=== PATIENT | male | born 1970 | race African-American/Black ===

== ENCOUNTER 2021-02-13 13:32 | Inpatient (IN) | payer OTHER ==
[~2021-02-13] VITALS: Ht 172.7 cm; Wt 94.3 kg
[2021-02-13] MEDS ORDERED: SODIUM CHLORIDE 0.9% 1,000 ML IV ONE (14:00)
[2021-02-13 14:27] LABS: BASOPHILS % 0.4 % (0.0-2.0); EOSINOPHILS % 0.3 % (0.0-5.0); HEMATOCRIT. 49.4 % (42.0-52.0); HEMOGLOBIN. 16.5 g/dL (14.0-18.0); LYMPHOCYTES % 10.1 % (20.0-50.0); MEAN CORPUSCULAR VOLUME 80.9 fL (80.0-94.0); MEAN PLATELET VOLUME 8.7 fl (7.4-10.4); MONOCYTES % 7.6 % (2.0-8.0); NEUTROPHILS % 81.6 % (40.0-76.0); PLATELET 176 x1000/uL (130-400); RED CELL DISTRIBUTION WIDTH 13.9 % (11.6-14.6)
[2021-02-13 14:35] LABS: CHLORIDE 113 mEq/L (98-107)
[2021-02-13 14:42] LABS: ETHANOL BLOOD < 10 mg/dL
[2021-02-13 14:44] LABS: CREATINE KINASE 365 IU/L (39-308)
[2021-02-13 20:17] LABS: CLARITY URINE CLOUDY (CLEAR); COLOR URINE YELLOW (YELLOW); KETONES URINE TRACE (NEGATIVE); LEUKOCYTE ESTERASE URINE 2+ (NEGATIVE); NITRITE URINE NEGATIVE (NEGATIVE); OCCULT BLOOD URINE 3+ (NEGATIVE); PROTEIN URINE TRACE (NEGATIVE); SPECIFIC GRAVITY URINE 1.018 (1.005-1.030)
[2021-02-13 20:27] LABS: *AMPHETAMINES SCREEN URINE NEGATIVE (NEGATIVE); *BARBITURATES SCREEN URINE NEGATIVE (NEGATIVE)
[2021-02-13 20:28] LABS: *BENZODIAZEPINES SCREEN URINE NEGATIVE (NEGATIVE); *COCAINE SCREEN URINE NEGATIVE (NEGATIVE); CANNABINOID URINE SCREEN NEGATIVE (NEGATIVE); METHADONE URINE SCREEN NEGATIVE (NEGATIVE); OPIATES URINE SCREEN NEGATIVE (NEGATIVE); PHENCYCLIDINE URINE SCREEN NEGATIVE (NEGATIVE)
[2021-02-13] MEDS ORDERED: HALOPERIDOL LACTATE 5MG/ML VIAL IM ONE (22:00)
[2021-02-13] MEDS ORDERED: LORAZEPAM 2MG/ML CPJ IV ONE ×2 (22:00→22:30)
[2021-02-13] MEDS ORDERED: DIPHENHYDRAMINE 50MG/ML VIAL IV ONE (22:30)
[2021-02-14 04:00] VITALS: BP_SYST 160; BP_SYST 167; BP_DIAS 113; BP_DIAS 72
[2021-02-14] MEDS ORDERED: ONDANSETRON HCL 4MG/2ML INJ IV PRN (06:15)
[2021-02-14] MEDS ORDERED: HYDRALAZINE 20MG/ML VIAL IV PRN (06:15)
[2021-02-14] MEDS ORDERED: MAGNESIUM/ALUMINUM HYDROXIDE/SIMETHICONE 30ML UDC PO PRN (06:15)
[2021-02-14] MEDS ORDERED: ACETAMINOPHEN 325MG TABLET PO PRN (06:15)
[2021-02-14] MEDS ORDERED: DIPHENHYDRAMINE 50MG/ML VIAL IV PRN (06:15)
[2021-02-14] MEDS ORDERED: DOCUSATE SODIUM 100MG CAPSULE PO PRN (06:15)
[2021-02-14] MEDS ORDERED: GUAIFENESIN 200MG/10ML SUGAR FREE UDC PO PRN (06:15)
[2021-02-14] MEDS ORDERED: CEFTRIAXONE 1 G PREMIX 50 ML IV SCH (06:15)
[2021-02-14] MEDS ORDERED: IPRATROPIUM/ALBUTEROL 0.5-3(2.5)MG/3ML NEB HHN PRN (06:15)
[2021-02-14] MEDS ORDERED: HYDROCODONE/ACETAMINOPHEN 5/325MG TABLET PO PRN (06:15)
[2021-02-14 08:00] VITALS: BP_SYST 176; BP_SYST 190; BP_DIAS 123; BP_DIAS 90
[2021-02-14] MEDS: CEFTRIAXONE 1,000 MG in DEXTROSE 5% WATER 50 ML IV SCH (09:54)
[2021-02-14] MEDS: DEXT 5%/0.45% NACL 1000ML 1,000 ML IV SCH ×2 (09:54→22:43)
[2021-02-14] MEDS: ENOXAPARIN 40MG/0.4ML SYR SUBCUT SCH (10:11)
[2021-02-14] MEDS: LORAZEPAM 2MG/ML CPJ IV PRN (10:35)
[2021-02-14 12:00] VITALS: BP 175/97
[2021-02-14] MEDS ORDERED: METOPROLOL TARTRATE 5MG/5ML VIAL IV NR (12:30)
[2021-02-14 12:53] LABS: BASOPHILS % 0.6 % (0.0-2.0); EOSINOPHILS % 0.2 % (0.0-5.0); HEMATOCRIT. 48.9 % (42.0-52.0); HEMOGLOBIN. 16.4 g/dL (14.0-18.0); LYMPHOCYTES % 11.3 % (20.0-50.0); MEAN CORPUSCULAR HEMOGLOBIN 26.6 pg (28.0-32.0); MEAN CORPUSCULAR VOLUME 79.2 fL (80.0-94.0); MEAN PLATELET VOLUME 8.5 fl (7.4-10.4); MONOCYTES % 9.5 % (2.0-8.0); NEUTROPHILS % 78.4 % (40.0-76.0); PLATELET 220 x1000/uL (130-400); RED BLOOD CELL COUNT 6.17 mill/uL (4.7-6.1); RED CELL DISTRIBUTION WIDTH 13.9 % (11.6-14.6)
[2021-02-14] MEDS: AMLODIPINE 5MG TABLET PO SCH (14:40)
[2021-02-14] MEDS: SODIUM CHLORIDE 0.9% INJ 3ML FLUSH IVF SCH ×2 (14:40→22:44)
[2021-02-14] MEDS: LABETALOL 5MG/ML SYR 20 MG/4 ML SYRINGE IV SCH ×2 (15:50→18:18)
[2021-02-14 16:00] VITALS: BP 175/115
[2021-02-14] MEDS ORDERED: CLONIDINE HCL 0.3MG/24HR PATCH TD NR (16:30)
[2021-02-14 17:00] VITALS: BP 175/97
[2021-02-14 17:26] LABS: CREATINE KINASE 876 IU/L (39-308)
[2021-02-14 17:27] LABS: CREATINE KINASE MB FRACTION 2.7 ng/mL (0.5-3.6)
[2021-02-14 20:00] VITALS: BP 165/112
[2021-02-14] MEDS ORDERED: THIAMINE HCL 100 MG in SODIUM CHLORIDE 0.9% 49 ML IV ONE (22:30)
[2021-02-14 23:20] LABS: CREATINE KINASE 852 IU/L (39-308); CREATINE KINASE MB FRACTION 2.2 ng/mL (0.5-3.6)
[2021-02-15] VITALS (13 sets, daily range): BP systolic 150–192; BP diastolic 25–137
[2021-02-15] MEDS: LABETALOL 5MG/ML SYR 20 MG/4 ML SYRINGE IV SCH ×4 (00:12→17:48)
[2021-02-15] MEDS: SODIUM CHLORIDE 0.9% INJ 3ML FLUSH IVF SCH ×3 (05:51→22:17)
[2021-02-15 06:55] LABS: CHLORIDE 112 mEq/L (98-107)
[2021-02-15 06:57] LABS: BASOPHILS % 0.7 % (0.0-2.0); EOSINOPHILS % 1.2 % (0.0-5.0); HEMOGLOBIN. 16.6 g/dL (14.0-18.0); LYMPHOCYTES % 13.3 % (20.0-50.0); MEAN CORPUSCULAR VOLUME 81.1 fL (80.0-94.0); MEAN PLATELET VOLUME 9.2 fl (7.4-10.4); MONOCYTES % 12.2 % (2.0-8.0); NEUTROPHILS % 72.6 % (40.0-76.0); PLATELET 212 x1000/uL (130-400); RED BLOOD CELL COUNT 6.16 mill/uL (4.7-6.1)
[2021-02-15] MEDS: AMLODIPINE 5MG TABLET PO SCH ×2 (09:00→09:15)
[2021-02-15] MEDS: METOPROLOL TARTRATE 5MG/5ML VIAL IV PRN ×2 (09:15→16:41)
[2021-02-15] MEDS: ENOXAPARIN 40MG/0.4ML SYR SUBCUT SCH (09:15)
[2021-02-15] MEDS: DEXT 5%/0.45% NACL 1000ML 1,000 ML IV SCH ×2 (09:16→22:17)
[2021-02-15] MEDS: CEFTRIAXONE 1,000 MG in DEXTROSE 5% WATER 50 ML IV SCH (09:19)
[2021-02-15] MEDS: HYDRALAZINE 20MG/ML VIAL IV PRN ×2 (10:45→18:34)
[2021-02-15] MEDS: TAMSULOSIN HCL 0.4MG SR CAPSULE PO SCH (11:30)
[2021-02-16] VITALS (7 sets, daily range): BP systolic 126–180; BP diastolic 83–111
[2021-02-16] MEDS: LABETALOL 5MG/ML SYR 20 MG/4 ML SYRINGE IV SCH ×5 (02:31→23:51)
[2021-02-16] MEDS: SODIUM CHLORIDE 0.9% INJ 3ML FLUSH IVF SCH ×3 (05:04→21:37)
[2021-02-16] MEDS: TAMSULOSIN HCL 0.4MG SR CAPSULE PO SCH (08:35)
[2021-02-16] MEDS: AMLODIPINE 5MG TABLET PO SCH (08:36)
[2021-02-16] MEDS: CEFTRIAXONE 1,000 MG in DEXTROSE 5% WATER 50 ML IV SCH (08:42)
[2021-02-16] MEDS: METOPROLOL TARTRATE 5MG/5ML VIAL IV PRN (08:42)
[2021-02-16] MEDS: ENOXAPARIN 40MG/0.4ML SYR SUBCUT SCH (08:42)
[2021-02-16] MEDS: LORAZEPAM 2MG/ML CPJ IV PRN (11:11)
[2021-02-16] MEDS: DEXT 5%/0.45% NACL 1000ML 1,000 ML IV SCH (13:17)
[2021-02-16] MEDS: HYDRALAZINE 20MG/ML VIAL IV PRN (21:37)
[2021-02-17] MEDS: DEXT 5%/0.45% NACL 1000ML 1,000 ML IV SCH ×2 (03:54→13:40)
[2021-02-17 04:00] VITALS: BP 142/100
[2021-02-17] MEDS: LABETALOL 5MG/ML SYR 20 MG/4 ML SYRINGE IV SCH ×3 (06:17→17:19)
[2021-02-17] MEDS: SODIUM CHLORIDE 0.9% INJ 3ML FLUSH IVF SCH ×3 (06:17→21:07)
[2021-02-17 06:37] LABS: BASOPHILS % 0.8 % (0.0-2.0); EOSINOPHILS % 2.5 % (0.0-5.0); HEMOGLOBIN. 15.1 g/dL (14.0-18.0); LYMPHOCYTES % 17.6 % (20.0-50.0); MEAN CORPUSCULAR HEMOGLOBIN 26.8 pg (28.0-32.0); MEAN CORPUSCULAR VOLUME 81.5 fL (80.0-94.0); MEAN PLATELET VOLUME 8.7 fl (7.4-10.4); MONOCYTES % 10.9 % (2.0-8.0); NEUTROPHILS % 68.2 % (40.0-76.0); PLATELET 202 x1000/uL (130-400); RED BLOOD CELL COUNT 5.65 mill/uL (4.7-6.1); RED CELL DISTRIBUTION WIDTH 14.1 % (11.6-14.6)
[2021-02-17 08:00] VITALS: BP 152/96
[2021-02-17] MEDS: TAMSULOSIN HCL 0.4MG SR CAPSULE PO SCH (09:00)
[2021-02-17] MEDS: AMLODIPINE 5MG TABLET PO SCH (09:00)
[2021-02-17] MEDS: CEFTRIAXONE 1,000 MG in DEXTROSE 5% WATER 50 ML IV SCH (10:21)
[2021-02-17] MEDS: ENOXAPARIN 40MG/0.4ML SYR SUBCUT SCH (10:24)
[2021-02-17 12:00] VITALS: BP 145/99
[2021-02-17] MEDS: CLONIDINE HCL 0.2MG/24HR PATCH TD SCH (13:40)
[2021-02-17 16:00] VITALS: BP 155/99
[2021-02-17] MEDS: ASPIRIN 81MG TABLET PO SCH (17:45)
[2021-02-17 20:00] VITALS: BP 162/102
[2021-02-17] MEDS: HYDRALAZINE 20MG/ML VIAL IV PRN (20:26)
[2021-02-18] VITALS: BP 154/97
[2021-02-18] MEDS: LABETALOL 5MG/ML SYR 20 MG/4 ML SYRINGE IV SCH ×4 (01:06→17:11)
[2021-02-18 04:00] VITALS: BP 174/95
[2021-02-18] MEDS: SODIUM CHLORIDE 0.9% INJ 3ML FLUSH IVF SCH ×3 (06:33→22:00)
[2021-02-18 06:40] LABS: BASOPHILS % 0.4 % (0.0-2.0); EOSINOPHILS % 2.5 % (0.0-5.0); HEMATOCRIT. 47.3 % (42.0-52.0); HEMOGLOBIN. 15.7 g/dL (14.0-18.0); LYMPHOCYTES % 16.3 % (20.0-50.0); MEAN CORPUSCULAR HEMOGLOBIN 26.7 pg (28.0-32.0); MEAN CORPUSCULAR VOLUME 80.5 fL (80.0-94.0); MONOCYTES % 11.5 % (2.0-8.0); NEUTROPHILS % 69.3 % (40.0-76.0); PLATELET 233 x1000/uL (130-400); RED BLOOD CELL COUNT 5.88 mill/uL (4.7-6.1); RED CELL DISTRIBUTION WIDTH 14.1 % (11.6-14.6)
[2021-02-18 08:00] VITALS: BP 138/89
[2021-02-18] MEDS: ENOXAPARIN 40MG/0.4ML SYR SUBCUT SCH (08:42)
[2021-02-18] MEDS: CEFTRIAXONE 1,000 MG in DEXTROSE 5% WATER 50 ML IV SCH (08:42)
[2021-02-18] MEDS: AMLODIPINE 5MG TABLET PO SCH (08:43)
[2021-02-18] MEDS: TAMSULOSIN HCL 0.4MG SR CAPSULE PO SCH (08:43)
[2021-02-18] MEDS: ASPIRIN 81MG TABLET PO SCH (08:43)
[2021-02-18 12:00] VITALS: BP_SYST 138; BP_SYST 189; BP_DIAS 118; BP_DIAS 89
[2021-02-18] MEDS: HYDRALAZINE 20MG/ML VIAL IV PRN ×2 (12:55→18:22)
[2021-02-18 16:00] VITALS: BP 170/112
[2021-02-18 20:00] VITALS: BP 154/96
[2021-02-19] VITALS (7 sets, daily range): BP systolic 112–157; BP diastolic 50–104
[2021-02-19] MEDS: LABETALOL 5MG/ML SYR 20 MG/4 ML SYRINGE IV SCH ×4 (00:38→18:04)
[2021-02-19] MEDS: HYDRALAZINE 20MG/ML VIAL IV PRN (04:59)
[2021-02-19] MEDS: SODIUM CHLORIDE 0.9% INJ 3ML FLUSH IVF SCH ×3 (06:04→22:27)
[2021-02-19] MEDS: ASPIRIN 81MG TABLET PO SCH (09:00)
[2021-02-19] MEDS: TAMSULOSIN HCL 0.4MG SR CAPSULE PO SCH (09:00)
[2021-02-19] MEDS: AMLODIPINE 5MG TABLET PO SCH (09:00)
[2021-02-19] MEDS: ENOXAPARIN 40MG/0.4ML SYR SUBCUT SCH (09:09)
[2021-02-19] MEDS: DEXT 5%/0.45% NACL 1000ML 1,000 ML IV SCH ×3 (18:03→19:42)
[2021-02-20] VITALS: BP 168/1
[2021-02-20] MEDS: LABETALOL 5MG/ML SYR 20 MG/4 ML SYRINGE IV SCH ×4 (00:15→17:06)
[2021-02-20 04:00] VITALS: BP 150/96
[2021-02-20] MEDS: SODIUM CHLORIDE 0.9% INJ 3ML FLUSH IVF SCH ×3 (06:03→22:00)
[2021-02-20 06:41] LABS: BASOPHILS % 0.5 % (0.0-2.0); EOSINOPHILS % 2.1 % (0.0-5.0); HEMATOCRIT. 49.6 % (42.0-52.0); HEMOGLOBIN. 16.2 g/dL (14.0-18.0); LYMPHOCYTES % 16.9 % (20.0-50.0); MEAN CORPUSCULAR HEMOGLOBIN 26.5 pg (28.0-32.0); MEAN CORPUSCULAR VOLUME 81.2 fL (80.0-94.0); MEAN PLATELET VOLUME 8.7 fl (7.4-10.4); MONOCYTES % 11.9 % (2.0-8.0); NEUTROPHILS % 68.6 % (40.0-76.0); PLATELET 237 x1000/uL (130-400); RED BLOOD CELL COUNT 6.11 mill/uL (4.7-6.1)
[2021-02-20 06:52] LABS: INR 1.1; PROTHROMBIN TIME 11.3 sec (9.6-11.0)
[2021-02-20 08:00] VITALS: BP 153/90
[2021-02-20] MEDS: TAMSULOSIN HCL 0.4MG SR CAPSULE PO SCH (08:34)
[2021-02-20] MEDS: AMLODIPINE 5MG TABLET PO SCH (08:34)
[2021-02-20] MEDS: DEXT 5%/0.45% NACL 1000ML 1,000 ML IV SCH ×2 (09:10→23:36)
[2021-02-20] MEDS ORDERED: CEFAZOLIN 1000MG PREMIX 50 ML IV SCH (10:00)
[2021-02-20 10:04] LABS: INR 1.1; PROTHROMBIN TIME 11.3 sec (9.6-11.0)
[2021-02-20] MEDS ORDERED: FENTANYL CITRATE/PF 50MCG/ML 2ML VIAL IV PRN (11:22)
[2021-02-20] MEDS ORDERED: MIDAZOLAM HCL 5 MG/5 ML VIAL ONE (11:23)
[2021-02-20] MEDS ORDERED: FENTANYL CITRATE/PF 50MCG/ML 2ML VIAL ONE (11:23)
[2021-02-20] MEDS ORDERED: MIDAZOLAM HCL 5 MG/5 ML VIAL IV PRN (11:23)
[2021-02-20] MEDS ORDERED: OMEPRAZOLE 20MG CAPSULE EXTENDED RELEASE PO NR (12:00)
[2021-02-20 13:22] VITALS: BP 145/90
[2021-02-20 16:00] VITALS: BP 165/113
[2021-02-20 20:00] VITALS: BP 129/94
[2021-02-21] VITALS: BP 135/94
[2021-02-21 04:00] VITALS: BP 140/102
[2021-02-21] MEDS: LABETALOL 5MG/ML SYR 20 MG/4 ML SYRINGE IV SCH ×4 (06:06→17:28)
[2021-02-21] MEDS: SODIUM CHLORIDE 0.9% INJ 3ML FLUSH IVF SCH ×3 (06:06→21:09)
[2021-02-21] MEDS: OMEPRAZOLE 20MG CAPSULE EXTENDED RELEASE PO SCH (06:08)
[2021-02-21 08:00] VITALS: BP 139/84
[2021-02-21] MEDS: ENOXAPARIN 40MG/0.4ML SYR SUBCUT SCH (09:07)
[2021-02-21] MEDS: TAMSULOSIN HCL 0.4MG SR CAPSULE PO SCH (09:08)
[2021-02-21] MEDS: AMLODIPINE 5MG TABLET PO SCH (09:08)
[2021-02-21] MEDS: ASPIRIN 81MG TABLET PO SCH (09:08)
[2021-02-21] MEDS: DEXT 5%/0.45% NACL 1000ML 1,000 ML IV SCH (11:41)
[2021-02-21 12:00] VITALS: BP 136/90
[2021-02-21 12:25] LABS: BASOPHILS % 0.7 % (0.0-2.0); EOSINOPHILS % 1.4 % (0.0-5.0); HEMATOCRIT. 45.5 % (42.0-52.0); HEMOGLOBIN. 15.3 g/dL (14.0-18.0); LYMPHOCYTES % 12.8 % (20.0-50.0); MEAN CORPUSCULAR VOLUME 80.3 fL (80.0-94.0); MEAN PLATELET VOLUME 8.7 fl (7.4-10.4); MONOCYTES % 11.4 % (2.0-8.0); NEUTROPHILS % 73.7 % (40.0-76.0); PLATELET 234 x1000/uL (130-400); RED BLOOD CELL COUNT 5.67 mill/uL (4.7-6.1); RED CELL DISTRIBUTION WIDTH 13.6 % (11.6-14.6)
[2021-02-21 16:00] VITALS: BP 135/87
[2021-02-21 20:00] VITALS: BP 147/98
[2021-02-22] MEDS: DEXT 5%/0.45% NACL 1000ML 1,000 ML IV SCH ×2 (00:16→14:32)
[2021-02-22] MEDS: LABETALOL 5MG/ML SYR 20 MG/4 ML SYRINGE IV SCH ×4 (00:16→17:19)
[2021-02-22 04:00] VITALS: BP 152/109
[2021-02-22 05:23] LABS: BASOPHILS % 0.9 % (0.0-2.0); EOSINOPHILS % 2.1 % (0.0-5.0); HEMATOCRIT. 46.9 % (42.0-52.0); HEMOGLOBIN. 15.1 g/dL (14.0-18.0); LYMPHOCYTES % 14.8 % (20.0-50.0); MEAN CORPUSCULAR HEMOGLOBIN 26.3 pg (28.0-32.0); MEAN CORPUSCULAR VOLUME 81.6 fL (80.0-94.0); NEUTROPHILS % 70.2 % (40.0-76.0); PLATELET 245 x1000/uL (130-400); RED BLOOD CELL COUNT 5.75 mill/uL (4.7-6.1); RED CELL DISTRIBUTION WIDTH 13.8 % (11.6-14.6)
[2021-02-22] MEDS: SODIUM CHLORIDE 0.9% INJ 3ML FLUSH IVF SCH ×3 (06:07→21:21)
[2021-02-22] MEDS: OMEPRAZOLE 20MG CAPSULE EXTENDED RELEASE PO SCH (06:08)
[2021-02-22 08:00] VITALS: BP 151/109
[2021-02-22] MEDS: ENOXAPARIN 40MG/0.4ML SYR SUBCUT SCH (09:52)
[2021-02-22] MEDS: ASPIRIN 81MG TABLET PO SCH (09:52)
[2021-02-22] MEDS: TAMSULOSIN HCL 0.4MG SR CAPSULE PO SCH (09:53)
[2021-02-22] MEDS: AMLODIPINE 5MG TABLET PO SCH (09:53)
[2021-02-22 12:00] VITALS: BP 162/91
[2021-02-22 16:00] VITALS: BP 125/93
[2021-02-22 20:00] VITALS: BP 134/87
[2021-02-23] VITALS: BP 128/91
[2021-02-23] MEDS: LABETALOL 5MG/ML SYR 20 MG/4 ML SYRINGE IV SCH ×4 (00:04→18:00)
[2021-02-23] MEDS: DEXT 5%/0.45% NACL 1000ML 1,000 ML IV SCH ×2 (02:52→17:08)
[2021-02-23 04:00] VITALS: BP 150/103
[2021-02-23] MEDS: HYDRALAZINE 20MG/ML VIAL IV PRN (04:49)
[2021-02-23] MEDS: OMEPRAZOLE 20MG CAPSULE EXTENDED RELEASE PO SCH (05:54)
[2021-02-23] MEDS: SODIUM CHLORIDE 0.9% INJ 3ML FLUSH IVF SCH ×3 (05:55→21:44)
[2021-02-23 07:24] LABS: BASOPHILS % 0.9 % (0.0-2.0); EOSINOPHILS % 2.5 % (0.0-5.0); HEMOGLOBIN. 14.8 g/dL (14.0-18.0); LYMPHOCYTES % 18.8 % (20.0-50.0); MEAN CORPUSCULAR HEMOGLOBIN 27.2 pg (28.0-32.0); MEAN CORPUSCULAR VOLUME 80.9 fL (80.0-94.0); MONOCYTES % 10.2 % (2.0-8.0); NEUTROPHILS % 67.6 % (40.0-76.0); PLATELET 262 x1000/uL (130-400); RED BLOOD CELL COUNT 5.44 mill/uL (4.7-6.1); RED CELL DISTRIBUTION WIDTH 13.8 % (11.6-14.6)
[2021-02-23 07:27] LABS: CHLORIDE 109 mEq/L (98-107)
[2021-02-23 08:00] VITALS: BP 170/100
[2021-02-23] MEDS: ASPIRIN 81MG TABLET PO SCH (10:33)
[2021-02-23] MEDS: AMLODIPINE 5MG TABLET PO SCH (10:34)
[2021-02-23] MEDS: ENOXAPARIN 40MG/0.4ML SYR SUBCUT SCH (10:35)
[2021-02-23] MEDS: TAMSULOSIN HCL 0.4MG SR CAPSULE PO SCH (10:36)
[2021-02-23 12:00] VITALS: BP 149/95
[2021-02-23 16:00] VITALS: BP 151/98
[2021-02-23 20:00] VITALS: BP 141/102
[2021-02-23] MEDS: CLONIDINE 0.1MG TABLET PO PRN (20:09)
[2021-02-24] VITALS: BP 132/102
[2021-02-24] MEDS: LABETALOL 5MG/ML SYR 20 MG/4 ML SYRINGE IV SCH ×6 (00:17→17:35)
[2021-02-24 04:00] VITALS: BP 150/96
[2021-02-24] MEDS: SODIUM CHLORIDE 0.9% INJ 3ML FLUSH IVF SCH ×2 (05:14→13:05)
[2021-02-24] MEDS: DEXT 5%/0.45% NACL 1000ML 1,000 ML IV SCH (05:51)
[2021-02-24 07:21] LABS: BASOPHILS % 0.7 % (0.0-2.0); EOSINOPHILS % 2.3 % (0.0-5.0); HEMATOCRIT. 43.2 % (42.0-52.0); HEMOGLOBIN. 14.4 g/dL (14.0-18.0); LYMPHOCYTES % 17.1 % (20.0-50.0); MEAN CORPUSCULAR HEMOGLOBIN 26.8 pg (28.0-32.0); MEAN CORPUSCULAR VOLUME 80.5 fL (80.0-94.0); MEAN PLATELET VOLUME 8.7 fl (7.4-10.4); MONOCYTES % 10.1 % (2.0-8.0); NEUTROPHILS % 69.8 % (40.0-76.0); PLATELET 270 x1000/uL (130-400); RED BLOOD CELL COUNT 5.37 mill/uL (4.7-6.1); RED CELL DISTRIBUTION WIDTH 13.4 % (11.6-14.6)
[2021-02-24 07:26] LABS: CHLORIDE 106 mEq/L (98-107)
[2021-02-24 08:00] VITALS: BP 152/98
[2021-02-24] MEDS: TAMSULOSIN HCL 0.4MG SR CAPSULE PO SCH (09:07)
[2021-02-24] MEDS: AMLODIPINE 5MG TABLET PO SCH ×2 (09:07→20:55)
[2021-02-24] MEDS: ASPIRIN 81MG TABLET PO SCH (09:07)
[2021-02-24] MEDS: LANSOPRAZOLE 30MG DR CAPSULE GT SCH (09:07)
[2021-02-24] MEDS: ENOXAPARIN 40MG/0.4ML SYR SUBCUT SCH (09:08)
[2021-02-24] MEDS: CLONIDINE HCL 0.2MG/24HR PATCH TD SCH (09:22)
[2021-02-24 12:00] VITALS: BP 144/94
[2021-02-24 16:21] VITALS: BP 160/100
[2021-02-24 20:00] VITALS: BP 154/94
[2021-02-25] VITALS: BP 112/76
[2021-02-25] MEDS: LABETALOL 5MG/ML SYR 20 MG/4 ML SYRINGE IV SCH ×4 (00:12→17:28)
[2021-02-25 04:00] VITALS: BP 120/80
[2021-02-25] MEDS ORDERED: DEXT 5%/0.45% NACL 1000ML 1,000 ML IV SCH (05:00)
[2021-02-25] MEDS: SODIUM CHLORIDE 0.9% INJ 3ML FLUSH IVF SCH ×4 (05:06→21:34)
[2021-02-25] MEDS: LANSOPRAZOLE 30MG DR CAPSULE GT SCH (06:15)
[2021-02-25 06:31] LABS: BASOPHILS % 0.5 % (0.0-2.0); EOSINOPHILS % 1.7 % (0.0-5.0); HEMOGLOBIN. 15.2 g/dL (14.0-18.0); LYMPHOCYTES % 15.2 % (20.0-50.0); MEAN CORPUSCULAR HEMOGLOBIN 26.6 pg (28.0-32.0); MEAN CORPUSCULAR VOLUME 80.5 fL (80.0-94.0); MEAN PLATELET VOLUME 9.2 fl (7.4-10.4); MONOCYTES % 8.4 % (2.0-8.0); NEUTROPHILS % 74.2 % (40.0-76.0); PLATELET 280 x1000/uL (130-400); RED BLOOD CELL COUNT 5.71 mill/uL (4.7-6.1); RED CELL DISTRIBUTION WIDTH 13.5 % (11.6-14.6)
[2021-02-25 07:10] LABS: CHLORIDE 104 mEq/L (98-107)
[2021-02-25 08:00] VITALS: BP 129/85
[2021-02-25] MEDS: AMLODIPINE 5MG TABLET PO SCH ×2 (08:40→21:00)
[2021-02-25] MEDS: TAMSULOSIN HCL 0.4MG SR CAPSULE PO SCH (08:40)
[2021-02-25] MEDS: ASPIRIN 81MG TABLET PO SCH (08:40)
[2021-02-25] MEDS: ENOXAPARIN 40MG/0.4ML SYR SUBCUT SCH (08:40)
[2021-02-25 12:00] VITALS: BP 134/90
[2021-02-25 16:00] VITALS: BP 128/93
[2021-02-25 20:00] VITALS: BP 127/91
[2021-02-25] MEDS: ENOXAPARIN 30MG/0.3ML SYR SUBCUT SCH (21:34)
[2021-02-26] VITALS: BP 108/81
[2021-02-26 04:00] VITALS: BP 116/81
[2021-02-26] MEDS: LABETALOL 5MG/ML SYR 20 MG/4 ML SYRINGE IV SCH ×4 (05:48→17:00)
[2021-02-26] MEDS: LANSOPRAZOLE 30MG DR CAPSULE GT SCH (06:08)
[2021-02-26] MEDS: SODIUM CHLORIDE 0.9% INJ 3ML FLUSH IVF SCH ×3 (06:08→20:59)
[2021-02-26 07:04] LABS: BASOPHILS % 0.9 % (0.0-2.0); EOSINOPHILS % 2.7 % (0.0-5.0); HEMATOCRIT. 47.5 % (42.0-52.0); HEMOGLOBIN. 15.3 g/dL (14.0-18.0); LYMPHOCYTES % 16.8 % (20.0-50.0); MEAN CORPUSCULAR VOLUME 80.8 fL (80.0-94.0); MONOCYTES % 9.5 % (2.0-8.0); NEUTROPHILS % 70.1 % (40.0-76.0); PLATELET 287 x1000/uL (130-400); RED BLOOD CELL COUNT 5.89 mill/uL (4.7-6.1); RED CELL DISTRIBUTION WIDTH 13.3 % (11.6-14.6)
[2021-02-26 07:36] LABS: CHLORIDE 102 mEq/L (98-107)
[2021-02-26 07:46] LABS: PHOSPHORUS 4.4 mg/dL (2.5-4.9)
[2021-02-26 08:00] VITALS: BP 112/77
[2021-02-26] MEDS: ENOXAPARIN 30MG/0.3ML SYR SUBCUT SCH ×2 (09:14→20:59)
[2021-02-26] MEDS: ASPIRIN 81MG TABLET PO SCH (09:14)
[2021-02-26] MEDS: TAMSULOSIN HCL 0.4MG SR CAPSULE PO SCH (09:15)
[2021-02-26] MEDS: AMLODIPINE 5MG TABLET PO SCH ×2 (09:15→20:24)
[2021-02-26 12:00] VITALS: BP 107/64
[2021-02-26 16:00] VITALS: BP 119/79
[2021-02-26 20:00] VITALS: BP 117/81
[2021-02-27] VITALS: BP 109/75
[2021-02-27 04:00] VITALS: BP 112/72
[2021-02-27] MEDS: LABETALOL 5MG/ML SYR 20 MG/4 ML SYRINGE IV SCH ×4 (05:40→18:25)
[2021-02-27] MEDS: LANSOPRAZOLE 30MG DR CAPSULE GT SCH (06:35)
[2021-02-27] MEDS: SODIUM CHLORIDE 0.9% INJ 3ML FLUSH IVF SCH ×3 (06:35→21:12)
[2021-02-27 08:00] VITALS: BP 112/72
[2021-02-27] MEDS: TAMSULOSIN HCL 0.4MG SR CAPSULE PO SCH (08:23)
[2021-02-27] MEDS: ASPIRIN 81MG TABLET PO SCH (08:23)
[2021-02-27] MEDS: AMLODIPINE 5MG TABLET PO SCH ×2 (08:23→20:35)
[2021-02-27] MEDS: ENOXAPARIN 30MG/0.3ML SYR SUBCUT SCH ×2 (08:23→20:37)
[2021-02-27 12:00] VITALS: BP 123/76
[2021-02-27 16:00] VITALS: BP 130/68
[2021-02-27 20:00] VITALS: BP 96/69
[2021-02-28] VITALS: BP 118/69
[2021-02-28 04:00] VITALS: BP 121/78
[2021-02-28] MEDS: LABETALOL 5MG/ML SYR 20 MG/4 ML SYRINGE IV SCH ×4 (05:34→17:00)
[2021-02-28] MEDS: SODIUM CHLORIDE 0.9% INJ 3ML FLUSH IVF SCH ×2 (06:28→21:00)
[2021-02-28] MEDS: LANSOPRAZOLE 30MG DR CAPSULE GT SCH (06:30)
[2021-02-28 08:00] VITALS: BP 124/78
[2021-02-28] MEDS: AMLODIPINE 5MG TABLET PO SCH ×2 (09:00→21:00)
[2021-02-28] MEDS: TAMSULOSIN HCL 0.4MG SR CAPSULE PO SCH (09:44)
[2021-02-28] MEDS: ASPIRIN 81MG TABLET PO SCH (09:44)
[2021-02-28] MEDS: ENOXAPARIN 30MG/0.3ML SYR SUBCUT SCH ×2 (09:44→20:54)
[2021-02-28 16:00] VITALS: BP 119/89
[2021-02-28] MEDS ORDERED: HYDRALAZINE 10 MG in SODIUM CHLORIDE 0.9% 49.5 ML IV PRN (18:30)
[2021-02-28] MEDS: METOPROLOL TARTRATE 25MG TABLET PO SCH (21:00)
[2021-03-01] MEDS: LANSOPRAZOLE 30MG DR CAPSULE GT SCH (06:28)
[2021-03-01 08:00] VITALS: BP 114/81
[2021-03-01] MEDS: AMLODIPINE 5MG TABLET PO SCH ×3 (09:00→21:00)
[2021-03-01] MEDS: ASPIRIN 81MG TABLET PO SCH (09:14)
[2021-03-01] MEDS: ENOXAPARIN 30MG/0.3ML SYR SUBCUT SCH ×2 (09:14→22:02)
[2021-03-01] MEDS: METOPROLOL TARTRATE 25MG TABLET PO SCH ×2 (09:14→22:01)
[2021-03-01] MEDS: TAMSULOSIN HCL 0.4MG SR CAPSULE PO SCH (09:24)
[2021-03-01 12:00] VITALS: BP 108/68
[2021-03-01] MEDS: SODIUM CHLORIDE 0.9% INJ 3ML FLUSH IVF SCH ×2 (14:48→22:02)
[2021-03-01 16:00] VITALS: BP 95/65
[2021-03-01 20:00] VITALS: BP 119/81
[2021-03-01] MEDS ORDERED: IOHEXOL-350 100 ML BOTTLE ONE (23:23)
[2021-03-02] VITALS: BP 114/66
[2021-03-02 04:00] VITALS: BP 125/78
[2021-03-02] MEDS: SODIUM CHLORIDE 0.9% INJ 3ML FLUSH IVF SCH ×3 (06:20→21:30)
[2021-03-02] MEDS: LANSOPRAZOLE 30MG DR CAPSULE GT SCH (06:21)
[2021-03-02 08:00] VITALS: BP 118/82
[2021-03-02] MEDS: METOPROLOL TARTRATE 25MG TABLET PO SCH ×2 (09:52→21:29)
[2021-03-02] MEDS: ENOXAPARIN 30MG/0.3ML SYR SUBCUT SCH ×2 (09:52→21:30)
[2021-03-02] MEDS: TAMSULOSIN HCL 0.4MG SR CAPSULE PO SCH (09:53)
[2021-03-02] MEDS: ASPIRIN 81MG TABLET PO SCH (09:53)
[2021-03-02] MEDS: AMLODIPINE 5MG TABLET PO SCH ×2 (09:53→21:30)
[2021-03-02 12:00] VITALS: BP 108/75
[2021-03-02 16:00] VITALS: BP 113/76
[2021-03-02 20:00] VITALS: BP 130/85
[2021-03-03] VITALS: BP 112/71
[2021-03-03 04:00] VITALS: BP 122/82
[2021-03-03] MEDS: SODIUM CHLORIDE 0.9% INJ 3ML FLUSH IVF SCH ×3 (05:49→21:34)
[2021-03-03] MEDS: LANSOPRAZOLE 30MG DR CAPSULE GT SCH (06:33)
[2021-03-03 08:00] VITALS: BP 124/80
[2021-03-03] MEDS: AMLODIPINE 5MG TABLET PO SCH ×2 (09:12→21:00)
[2021-03-03] MEDS: METOPROLOL TARTRATE 25MG TABLET PO SCH ×2 (09:12→21:00)
[2021-03-03] MEDS: CLONIDINE 0.1MG TABLET PO PRN (09:13)
[2021-03-03] MEDS: ASPIRIN 81MG TABLET PO SCH (09:13)
[2021-03-03] MEDS: TAMSULOSIN HCL 0.4MG SR CAPSULE PO SCH (09:13)
[2021-03-03] MEDS: ENOXAPARIN 30MG/0.3ML SYR SUBCUT SCH ×2 (09:14→21:25)
[2021-03-03] MEDS: CLONIDINE HCL 0.2MG/24HR PATCH TD SCH (09:35)
[2021-03-03 12:00] VITALS: BP 99/67
[2021-03-03 16:00] VITALS: BP 105/71
[2021-03-03 20:00] VITALS: BP 110/71
[2021-03-04] VITALS: BP 119/82
[2021-03-04 04:00] VITALS: BP 132/91
[2021-03-04] MEDS: LANSOPRAZOLE 30MG DR CAPSULE GT SCH (06:27)
[2021-03-04] MEDS: SODIUM CHLORIDE 0.9% INJ 3ML FLUSH IVF SCH ×3 (06:27→21:53)
[2021-03-04 08:00] VITALS: BP 122/91
[2021-03-04] MEDS: ENOXAPARIN 30MG/0.3ML SYR SUBCUT SCH ×2 (09:16→21:54)
[2021-03-04] MEDS: AMLODIPINE 5MG TABLET PO SCH ×2 (09:17→21:52)
[2021-03-04] MEDS: TAMSULOSIN HCL 0.4MG SR CAPSULE PO SCH (09:17)
[2021-03-04] MEDS: METOPROLOL TARTRATE 25MG TABLET PO SCH ×2 (09:18→21:52)
[2021-03-04] MEDS: ASPIRIN 81MG TABLET PO SCH (09:18)
[2021-03-04 12:00] VITALS: BP 135/86
[2021-03-04 16:00] VITALS: BP 128/86
[2021-03-04 20:00] VITALS: BP 128/89
[2021-03-05] VITALS: BP 123/85
[2021-03-05 04:00] VITALS: BP 125/92
[2021-03-05] MEDS: SODIUM CHLORIDE 0.9% INJ 3ML FLUSH IVF SCH ×3 (06:36→21:02)
[2021-03-05] MEDS: LANSOPRAZOLE 30MG DR CAPSULE GT SCH (06:37)
[2021-03-05 08:24] VITALS: BP 113/80
[2021-03-05] MEDS: AMLODIPINE 5MG TABLET PO SCH ×2 (09:23→20:57)
[2021-03-05] MEDS: TAMSULOSIN HCL 0.4MG SR CAPSULE PO SCH (09:23)
[2021-03-05] MEDS: ASPIRIN 81MG TABLET PO SCH (09:24)
[2021-03-05] MEDS: ENOXAPARIN 30MG/0.3ML SYR SUBCUT SCH ×2 (09:24→20:58)
[2021-03-05] MEDS: METOPROLOL TARTRATE 25MG TABLET PO SCH ×2 (09:24→20:57)
[2021-03-05 12:00] VITALS: BP 115/83
[2021-03-05 16:00] VITALS: BP 120/88
[2021-03-05 20:00] VITALS: BP 127/95
[2021-03-06] VITALS: BP 125/88
[2021-03-06 04:00] VITALS: BP 133/93
[2021-03-06 06:10] LABS: BASOPHILS % 0.7 % (0.0-2.0); EOSINOPHILS % 1.6 % (0.0-5.0); HEMATOCRIT. 47.1 % (42.0-52.0); HEMOGLOBIN. 15.5 g/dL (14.0-18.0); MEAN CORPUSCULAR HEMOGLOBIN 26.7 pg (28.0-32.0); MEAN CORPUSCULAR VOLUME 81.2 fL (80.0-94.0); MEAN PLATELET VOLUME 9.2 fl (7.4-10.4); MONOCYTES % 10.7 % (2.0-8.0); PLATELET 386 x1000/uL (130-400); RED BLOOD CELL COUNT 5.81 mill/uL (4.7-6.1)
[2021-03-06] MEDS: LANSOPRAZOLE 30MG DR CAPSULE GT SCH (06:20)
[2021-03-06] MEDS: SODIUM CHLORIDE 0.9% INJ 3ML FLUSH IVF SCH ×3 (06:20→22:00)
[2021-03-06 08:00] VITALS: BP 134/92
[2021-03-06] MEDS: AMLODIPINE 5MG TABLET PO SCH ×2 (09:00→23:34)
[2021-03-06] MEDS: ASPIRIN 81MG TABLET PO SCH (09:00)
[2021-03-06] MEDS: METOPROLOL TARTRATE 25MG TABLET PO SCH ×2 (10:37→23:34)
[2021-03-06] MEDS: TAMSULOSIN HCL 0.4MG SR CAPSULE PO SCH (10:38)
[2021-03-06] MEDS: ENOXAPARIN 30MG/0.3ML SYR SUBCUT SCH ×2 (10:39→23:34)
[2021-03-06 12:00] VITALS: BP 135/91
[2021-03-06 16:00] VITALS: BP 126/88
[2021-03-06 20:00] VITALS: BP 126/84
[2021-03-07] VITALS: BP 123/95
[2021-03-07 04:00] VITALS: BP 119/90
[2021-03-07] MEDS: LANSOPRAZOLE 30MG DR CAPSULE GT SCH (06:49)
[2021-03-07] MEDS: SODIUM CHLORIDE 0.9% INJ 3ML FLUSH IVF SCH ×3 (06:49→21:56)
[2021-03-07 07:19] LABS: BASOPHILS % 0.5 % (0.0-2.0); EOSINOPHILS % 1.2 % (0.0-5.0); HEMATOCRIT. 47.3 % (42.0-52.0); HEMOGLOBIN. 15.6 g/dL (14.0-18.0); LYMPHOCYTES % 10.9 % (20.0-50.0); MEAN CORPUSCULAR HEMOGLOBIN 26.7 pg (28.0-32.0); MEAN CORPUSCULAR VOLUME 80.8 fL (80.0-94.0); MEAN PLATELET VOLUME 9.5 fl (7.4-10.4); MONOCYTES % 9.5 % (2.0-8.0); NEUTROPHILS % 77.9 % (40.0-76.0); PLATELET 395 x1000/uL (130-400); RED BLOOD CELL COUNT 5.86 mill/uL (4.7-6.1)
[2021-03-07 08:00] VITALS: BP 132/97
[2021-03-07] MEDS: TAMSULOSIN HCL 0.4MG SR CAPSULE PO SCH (09:59)
[2021-03-07] MEDS: ENOXAPARIN 30MG/0.3ML SYR SUBCUT SCH ×2 (10:00→21:54)
[2021-03-07] MEDS: METOPROLOL TARTRATE 25MG TABLET PO SCH ×2 (10:00→21:56)
[2021-03-07] MEDS: ASPIRIN 81MG TABLET PO SCH (10:00)
[2021-03-07] MEDS: AMLODIPINE 5MG TABLET PO SCH ×2 (10:00→21:00)
[2021-03-07 12:00] VITALS: BP 125/96
[2021-03-07 16:00] VITALS: BP 120/92
[2021-03-07 20:00] VITALS: BP 127/89
[2021-03-08] VITALS: BP 128/92
[2021-03-08 04:00] VITALS: BP 121/91
[2021-03-08] MEDS: SODIUM CHLORIDE 0.9% INJ 3ML FLUSH IVF SCH ×3 (06:26→22:13)
[2021-03-08] MEDS: LANSOPRAZOLE 30MG DR CAPSULE GT SCH (06:26)
[2021-03-08 07:13] LABS: BASOPHILS % 0.5 % (0.0-2.0); HEMATOCRIT. 48.3 % (42.0-52.0); HEMOGLOBIN. 15.8 g/dL (14.0-18.0); LYMPHOCYTES % 16.1 % (20.0-50.0); MEAN CORPUSCULAR HEMOGLOBIN 26.5 pg (28.0-32.0); MEAN CORPUSCULAR VOLUME 81.2 fL (80.0-94.0); MEAN PLATELET VOLUME 9.6 fl (7.4-10.4); MONOCYTES % 11.7 % (2.0-8.0); NEUTROPHILS % 69.7 % (40.0-76.0); PLATELET 401 x1000/uL (130-400); RED BLOOD CELL COUNT 5.94 mill/uL (4.7-6.1); RED CELL DISTRIBUTION WIDTH 13.8 % (11.6-14.6)
[2021-03-08 08:00] VITALS: BP 115/84
[2021-03-08] MEDS: AMLODIPINE 5MG TABLET PO SCH ×2 (09:00→21:00)
[2021-03-08] MEDS: ASPIRIN 81MG TABLET PO SCH (09:08)
[2021-03-08] MEDS: ENOXAPARIN 30MG/0.3ML SYR SUBCUT SCH ×2 (09:10→22:11)
[2021-03-08] MEDS: TAMSULOSIN HCL 0.4MG SR CAPSULE PO SCH (09:11)
[2021-03-08] MEDS: METOPROLOL TARTRATE 25MG TABLET PO SCH ×2 (09:11→21:00)
[2021-03-08 12:00] VITALS: BP 120/87
[2021-03-08 16:00] VITALS: BP 126/81
[2021-03-08 20:00] VITALS: BP 117/96
[2021-03-09] VITALS: BP 134/95
[2021-03-09 04:00] VITALS: BP 120/96
[2021-03-09] MEDS: SODIUM CHLORIDE 0.9% INJ 3ML FLUSH IVF SCH ×3 (06:00→21:49)
[2021-03-09] MEDS: LANSOPRAZOLE 30MG DR CAPSULE GT SCH (07:03)
[2021-03-09 07:37] LABS: BASOPHILS % 0.8 % (0.0-2.0); EOSINOPHILS % 2.7 % (0.0-5.0); HEMATOCRIT. 49.6 % (42.0-52.0); HEMOGLOBIN. 16.2 g/dL (14.0-18.0); LYMPHOCYTES % 19.1 % (20.0-50.0); MEAN CORPUSCULAR HEMOGLOBIN 26.6 pg (28.0-32.0); MEAN CORPUSCULAR VOLUME 81.2 fL (80.0-94.0); MEAN PLATELET VOLUME 10.1 fl (7.4-10.4); MONOCYTES % 9.4 % (2.0-8.0); PLATELET 380 x1000/uL (130-400); RED BLOOD CELL COUNT 6.11 mill/uL (4.7-6.1)
[2021-03-09 08:00] VITALS: BP 134/97
[2021-03-09] MEDS: AMLODIPINE 5MG TABLET PO SCH ×2 (09:00→21:48)
[2021-03-09] MEDS: ASPIRIN 81MG TABLET PO SCH (09:06)
[2021-03-09] MEDS: TAMSULOSIN HCL 0.4MG SR CAPSULE PO SCH (09:07)
[2021-03-09] MEDS: METOPROLOL TARTRATE 25MG TABLET PO SCH ×2 (09:07→21:50)
[2021-03-09] MEDS: ENOXAPARIN 30MG/0.3ML SYR SUBCUT SCH ×2 (09:08→21:49)
[2021-03-09 12:00] VITALS: BP 127/98
[2021-03-09 16:00] VITALS: BP 127/95
[2021-03-09 20:00] VITALS: BP 116/91
[2021-03-10] VITALS: BP 120/81
[2021-03-10 04:00] VITALS: BP 136/80
[2021-03-10] MEDS: SODIUM CHLORIDE 0.9% INJ 3ML FLUSH IVF SCH ×3 (06:39→21:35)
[2021-03-10] MEDS: LANSOPRAZOLE 30MG DR CAPSULE GT SCH (06:39)
[2021-03-10 07:16] LABS: BASOPHILS % 0.6 % (0.0-2.0); EOSINOPHILS % 3.1 % (0.0-5.0); HEMATOCRIT. 48.7 % (42.0-52.0); HEMOGLOBIN. 16.2 g/dL (14.0-18.0); LYMPHOCYTES % 13.1 % (20.0-50.0); MEAN CORPUSCULAR HEMOGLOBIN 26.5 pg (28.0-32.0); MEAN CORPUSCULAR VOLUME 79.9 fL (80.0-94.0); MEAN PLATELET VOLUME 9.5 fl (7.4-10.4); MONOCYTES % 7.1 % (2.0-8.0); NEUTROPHILS % 76.1 % (40.0-76.0); PLATELET 419 x1000/uL (130-400); RED BLOOD CELL COUNT 6.09 mill/uL (4.7-6.1); RED CELL DISTRIBUTION WIDTH 13.9 % (11.6-14.6)
[2021-03-10] MEDS: TAMSULOSIN HCL 0.4MG SR CAPSULE PO SCH (08:59)
[2021-03-10] MEDS: AMLODIPINE 5MG TABLET PO SCH ×2 (09:00→21:00)
[2021-03-10] MEDS: METOPROLOL TARTRATE 25MG TABLET PO SCH ×2 (09:00→21:33)
[2021-03-10] MEDS: ENOXAPARIN 30MG/0.3ML SYR SUBCUT SCH ×2 (09:01→21:34)
[2021-03-10] MEDS: ASPIRIN 81MG TABLET PO SCH (09:01)
[2021-03-10] MEDS: CLONIDINE HCL 0.2MG/24HR PATCH TD SCH (14:43)
[2021-03-10 20:00] VITALS: BP 126/87
[2021-03-11] VITALS (7 sets, daily range): BP systolic 110–147; BP diastolic 74–105
[2021-03-11] MEDS: LANSOPRAZOLE 30MG DR CAPSULE GT SCH (06:21)
[2021-03-11] MEDS: SODIUM CHLORIDE 0.9% INJ 3ML FLUSH IVF SCH ×3 (06:21→21:50)
[2021-03-11 06:50] LABS: BASOPHILS % 0.7 % (0.0-2.0); EOSINOPHILS % 3.1 % (0.0-5.0); HEMATOCRIT. 51.3 % (42.0-52.0); HEMOGLOBIN. 16.8 g/dL (14.0-18.0); LYMPHOCYTES % 16.5 % (20.0-50.0); MEAN CORPUSCULAR HEMOGLOBIN 26.8 pg (28.0-32.0); MEAN CORPUSCULAR VOLUME 81.8 fL (80.0-94.0); MONOCYTES % 6.5 % (2.0-8.0); NEUTROPHILS % 73.2 % (40.0-76.0); PLATELET 363 x1000/uL (130-400); RED BLOOD CELL COUNT 6.28 mill/uL (4.7-6.1); RED CELL DISTRIBUTION WIDTH 13.8 % (11.6-14.6)
[2021-03-11] MEDS: METOPROLOL TARTRATE 25MG TABLET PO SCH ×2 (09:00→21:50)
[2021-03-11] MEDS: ASPIRIN 81MG TABLET PO SCH (09:27)
[2021-03-11] MEDS: AMLODIPINE 5MG TABLET PO SCH ×2 (09:27→21:00)
[2021-03-11] MEDS: TAMSULOSIN HCL 0.4MG SR CAPSULE PO SCH (09:28)
[2021-03-11] MEDS: ENOXAPARIN 30MG/0.3ML SYR SUBCUT SCH ×2 (09:29→21:47)
[2021-03-11] MEDS: CLONIDINE 0.1MG TABLET PO PRN (17:34)
[2021-03-12 00:47] VITALS: BP 144/96
[2021-03-12 04:00] VITALS: BP 137/96
[2021-03-12 06:06] LABS: BASOPHILS % 0.8 % (0.0-2.0); HEMATOCRIT. 52.9 % (42.0-52.0); HEMOGLOBIN. 17.2 g/dL (14.0-18.0); LYMPHOCYTES % 14.8 % (20.0-50.0); MEAN CORPUSCULAR HEMOGLOBIN 26.6 pg (28.0-32.0); MEAN CORPUSCULAR VOLUME 81.8 fL (80.0-94.0); MEAN PLATELET VOLUME 10.4 fl (7.4-10.4); MONOCYTES % 5.8 % (2.0-8.0); NEUTROPHILS % 74.6 % (40.0-76.0); PLATELET 341 x1000/uL (130-400); RED BLOOD CELL COUNT 6.46 mill/uL (4.7-6.1); RED CELL DISTRIBUTION WIDTH 13.9 % (11.6-14.6)
[2021-03-12] MEDS: SODIUM CHLORIDE 0.9% INJ 3ML FLUSH IVF SCH ×3 (07:15→21:34)
[2021-03-12] MEDS: LANSOPRAZOLE 30MG DR CAPSULE GT SCH (07:15)
[2021-03-12 08:00] VITALS: BP 136/91
[2021-03-12] MEDS: ASPIRIN 81MG TABLET PO SCH (09:52)
[2021-03-12] MEDS: TAMSULOSIN HCL 0.4MG SR CAPSULE PO SCH (09:53)
[2021-03-12] MEDS: AMLODIPINE 5MG TABLET PO SCH ×2 (09:53→21:00)
[2021-03-12] MEDS: METOPROLOL TARTRATE 25MG TABLET PO SCH ×2 (09:53→21:33)
[2021-03-12] MEDS: ENOXAPARIN 30MG/0.3ML SYR SUBCUT SCH ×2 (10:00→21:33)
[2021-03-12 12:00] VITALS: BP 131/85
[2021-03-12 16:00] VITALS: BP 128/94
[2021-03-12 20:00] VITALS: BP 124/80
[2021-03-13] VITALS: BP 115/89
[2021-03-13 04:00] VITALS: BP 134/93
[2021-03-13] MEDS: SODIUM CHLORIDE 0.9% INJ 3ML FLUSH IVF SCH ×3 (06:24→22:25)
[2021-03-13] MEDS: LANSOPRAZOLE 30MG DR CAPSULE GT SCH (06:25)
[2021-03-13 07:10] LABS: BASOPHILS % 0.5 % (0.0-2.0); EOSINOPHILS % 3.2 % (0.0-5.0); HEMATOCRIT. 54.9 % (42.0-52.0); HEMOGLOBIN. 17.6 g/dL (14.0-18.0); MEAN CORPUSCULAR HEMOGLOBIN 26.2 pg (28.0-32.0); MEAN CORPUSCULAR VOLUME 81.9 fL (80.0-94.0); MEAN PLATELET VOLUME 10.2 fl (7.4-10.4); MONOCYTES % 7.1 % (2.0-8.0); NEUTROPHILS % 77.2 % (40.0-76.0); PLATELET 320 x1000/uL (130-400); RED BLOOD CELL COUNT 6.71 mill/uL (4.7-6.1); RED CELL DISTRIBUTION WIDTH 13.8 % (11.6-14.6)
[2021-03-13 07:34] LABS: CHLORIDE 120 mEq/L (98-107)
[2021-03-13 08:00] VITALS: BP 118/81
[2021-03-13] MEDS: METOPROLOL TARTRATE 25MG TABLET PO SCH ×2 (09:07→22:34)
[2021-03-13] MEDS: ASPIRIN 81MG TABLET PO SCH (09:08)
[2021-03-13] MEDS: ENOXAPARIN 30MG/0.3ML SYR SUBCUT SCH ×2 (09:08→22:34)
[2021-03-13] MEDS: AMLODIPINE 5MG TABLET PO SCH ×2 (09:08→21:00)
[2021-03-13] MEDS: TAMSULOSIN HCL 0.4MG SR CAPSULE PO SCH (09:08)
[2021-03-13] MEDS ORDERED: DEXTROSE 5% WATER 1,000 ML IV ONE (10:45)
[2021-03-13 12:00] VITALS: BP 121/94
[2021-03-13 16:00] VITALS: BP 118/86
[2021-03-13 20:00] VITALS: BP 124/94
[2021-03-14] VITALS: BP 121/86
[2021-03-14 04:00] VITALS: BP 118/98
[2021-03-14] MEDS: LANSOPRAZOLE 30MG DR CAPSULE GT SCH (06:27)
[2021-03-14] MEDS: SODIUM CHLORIDE 0.9% INJ 3ML FLUSH IVF SCH ×2 (06:28→13:01)
[2021-03-14 07:51] LABS: BASOPHILS % 0.5 % (0.0-2.0); EOSINOPHILS % 3.1 % (0.0-5.0); HEMATOCRIT. 54.2 % (42.0-52.0); HEMOGLOBIN. 16.9 g/dL (14.0-18.0); LYMPHOCYTES % 16.5 % (20.0-50.0); MEAN CORPUSCULAR HEMOGLOBIN 25.9 pg (28.0-32.0); MEAN CORPUSCULAR VOLUME 83.2 fL (80.0-94.0); MEAN PLATELET VOLUME 10.4 fl (7.4-10.4); MONOCYTES % 8.7 % (2.0-8.0); NEUTROPHILS % 71.2 % (40.0-76.0); PLATELET 284 x1000/uL (130-400); RED BLOOD CELL COUNT 6.52 mill/uL (4.7-6.1); RED CELL DISTRIBUTION WIDTH 14.1 % (11.6-14.6)
[2021-03-14 08:00] VITALS: BP 116/95
[2021-03-14] MEDS: METOPROLOL TARTRATE 25MG TABLET PO SCH ×2 (09:55→21:05)
[2021-03-14] MEDS: AMLODIPINE 5MG TABLET PO SCH ×2 (09:55→21:06)
[2021-03-14] MEDS: ASPIRIN 81MG TABLET PO SCH (09:55)
[2021-03-14] MEDS: TAMSULOSIN HCL 0.4MG SR CAPSULE PO SCH (09:56)
[2021-03-14] MEDS: ENOXAPARIN 30MG/0.3ML SYR SUBCUT SCH ×2 (09:56→21:07)
[2021-03-14 12:00] VITALS: BP 130/98
[2021-03-14 16:00] VITALS: BP 117/95
[2021-03-14 20:00] VITALS: BP 139/94
[2021-03-15] VITALS: BP 126/83
[2021-03-15 04:00] VITALS: BP 113/88
[2021-03-15] MEDS: LANSOPRAZOLE 30MG DR CAPSULE GT SCH (06:57)
[2021-03-15 08:00] VITALS: BP 130/96
[2021-03-15] MEDS: AMLODIPINE 5MG TABLET PO SCH ×2 (09:00→20:43)
[2021-03-15] MEDS: ASPIRIN 81MG TABLET PO SCH (09:32)
[2021-03-15] MEDS: TAMSULOSIN HCL 0.4MG SR CAPSULE PO SCH (09:33)
[2021-03-15] MEDS: METOPROLOL TARTRATE 25MG TABLET PO SCH ×2 (09:34→20:42)
[2021-03-15] MEDS: ENOXAPARIN 30MG/0.3ML SYR SUBCUT SCH ×2 (09:35→20:43)
[2021-03-15 12:00] VITALS: BP 126/92
[2021-03-15 16:00] VITALS: BP 107/80
[2021-03-15 20:00] VITALS: BP 124/94
[2021-03-16] VITALS: BP 100/68
[2021-03-16 04:00] VITALS: BP 123/70
[2021-03-16 07:02] LABS: BASOPHILS % 0.2 % (0.0-2.0); EOSINOPHILS % 4.7 % (0.0-5.0); HEMOGLOBIN. 16.2 g/dL (14.0-18.0); LYMPHOCYTES % 18.2 % (20.0-50.0); MEAN CORPUSCULAR HEMOGLOBIN 26.2 pg (28.0-32.0); MEAN CORPUSCULAR VOLUME 82.5 fL (80.0-94.0); MEAN PLATELET VOLUME 10.8 fl (7.4-10.4); MONOCYTES % 6.7 % (2.0-8.0); NEUTROPHILS % 70.2 % (40.0-76.0); PLATELET 266 x1000/uL (130-400); RED BLOOD CELL COUNT 6.18 mill/uL (4.7-6.1); RED CELL DISTRIBUTION WIDTH 14.3 % (11.6-14.6)
[2021-03-16] MEDS: LANSOPRAZOLE 30MG DR CAPSULE GT SCH (07:51)
[2021-03-16 08:00] VITALS: BP 126/92
[2021-03-16] MEDS: ENOXAPARIN 30MG/0.3ML SYR SUBCUT SCH ×2 (10:01→21:36)
[2021-03-16] MEDS: ASPIRIN 81MG TABLET PO SCH (10:01)
[2021-03-16] MEDS: METOPROLOL TARTRATE 25MG TABLET PO SCH ×2 (10:02→21:36)
[2021-03-16] MEDS: AMLODIPINE 5MG TABLET PO SCH ×2 (10:02→21:35)
[2021-03-16 12:00] VITALS: BP 123/90
[2021-03-16 16:00] VITALS: BP 133/86
[2021-03-16 20:00] VITALS: BP 119/85
[2021-03-17] VITALS: BP 114/85
[2021-03-17 04:00] VITALS: BP 119/93
[2021-03-17 05:58] LABS: BASOPHILS % 0.5 % (0.0-2.0); EOSINOPHILS % 3.6 % (0.0-5.0); HEMATOCRIT. 51.7 % (42.0-52.0); HEMOGLOBIN. 16.5 g/dL (14.0-18.0); LYMPHOCYTES % 17.1 % (20.0-50.0); MEAN CORPUSCULAR HEMOGLOBIN 26.1 pg (28.0-32.0); MEAN PLATELET VOLUME 10.9 fl (7.4-10.4); NEUTROPHILS % 72.8 % (40.0-76.0); PLATELET 246 x1000/uL (130-400); RED BLOOD CELL COUNT 6.31 mill/uL (4.7-6.1); RED CELL DISTRIBUTION WIDTH 13.8 % (11.6-14.6)
[2021-03-17 06:11] LABS: CHLORIDE 118 mEq/L (98-107)
[2021-03-17] MEDS: LANSOPRAZOLE 30MG DR CAPSULE GT SCH (06:57)
[2021-03-17 08:00] VITALS: BP_SYST 106; BP_SYST 116; BP_DIAS 71; BP_DIAS 95
[2021-03-17] MEDS: METOPROLOL TARTRATE 25MG TABLET PO SCH ×2 (09:19→20:39)
[2021-03-17] MEDS: ENOXAPARIN 30MG/0.3ML SYR SUBCUT SCH ×2 (09:20→20:39)
[2021-03-17] MEDS: ASPIRIN 81MG TABLET PO SCH (09:20)
[2021-03-17] MEDS: AMLODIPINE 5MG TABLET PO SCH ×2 (09:20→20:39)
[2021-03-17] MEDS: CLONIDINE HCL 0.2MG/24HR PATCH TD SCH (12:36)
[2021-03-17 12:55] VITALS: BP 118/84
[2021-03-17 20:00] VITALS: BP 139/91
[2021-03-18] VITALS: BP 115/87
[2021-03-18 04:00] VITALS: BP 128/85
[2021-03-18] MEDS: LANSOPRAZOLE 30MG DR CAPSULE GT SCH (06:38)
[2021-03-18] MEDS: AMLODIPINE 5MG TABLET PO SCH (09:00)
[2021-03-18] MEDS: METOPROLOL TARTRATE 25MG TABLET PO SCH (09:07)
[2021-03-18] MEDS: ENOXAPARIN 30MG/0.3ML SYR SUBCUT SCH (09:08)
[2021-03-18 14:09] VITALS: BP 110/88
== END 2021-03-18 14:56 | DRG 45 ==
LOC: ER 13:32 → ENRESERV 02-14 01:40 → EDBD 02-14 02:23 → 5WST 02-14 02:23 → 7EST 02-23 12:10 → 6EST 02-28 18:07
PROVIDERS: ADMIT Internal Medicine; ATTEND Internal Medicine
PROC: 0DH63UZ Insertion of Feeding Device into Stomach, Percutaneous Approach (ICD-10-PCS; 2021-02-20)
PROC: 4A10X4Z Monitoring of Central Nervous Electrical Activity, External Approach (ICD-10-PCS; principal; 2021-03-13)
DX: I63.511 Cerebral infarction due to unspecified occlusion or stenosis of right middle cerebral artery (principal); N17.0 Acute kidney failure with tubular necrosis; G93.41 Metabolic encephalopathy; E46 Unspecified protein-calorie malnutrition; R13.12 Dysphagia, oropharyngeal phase; G81.94 Hemiplegia, unspecified affecting left nondominant side; E87.8 Other disorders of electrolyte and fluid balance, not elsewhere classified; E86.0 Dehydration; E87.5 Hyperkalemia; K29.80 Duodenitis without bleeding; N39.0 Urinary tract infection, site not specified; R00.0 Tachycardia, unspecified; R79.89 Other specified abnormal findings of blood chemistry; Z20.822 Contact with and (suspected) exposure to COVID-19; D64.9 Anemia, unspecified; I10 Essential (primary) hypertension; I87.8 Other specified disorders of veins; S90.521A Blister (nonthermal), right ankle, initial encounter; X58.XXXA Exposure to other specified factors, initial encounter; E87.0 Hyperosmolality and hypernatremia; Z86.73 Personal history of transient ischemic attack (TIA), and cerebral infarction without residual deficits; Z93.1 Gastrostomy status; Z59.0 Homelessness; Y93.89 Activity, other specified; Y92.89 Other specified places as the place of occurrence of the external cause; Y99.8 Other external cause status
CPT/HCPCS: 36415; 70551; 71045; 76770; 80048; 80053; 80061; 80305; 80307; 80320; 80329; 81003; 82140; 82550; 82553; 82962; 83605; 83735; 83880; 84100; 84132; 84443; 84484; 85025; 87426; 92610; 93005; 93306; 93880; 93970; 95816; 97161; 97166; 99285; C1893; J0360; J0690; J0696; J1200; J1630; J1650; J2060; J2250; J3010; J3411; J3490; J7030; J7040; J7060; J7070; Q9967; A4315; G0480